=== PATIENT | female | born 1945 | race Caucasian/White ===

== ENCOUNTER 2019-08-25 12:04 | Inpatient (IN) | payer MEDICARE, OTHER ==
[~2019-08-25] VITALS: Ht 167.6 cm; Wt 58.7 kg
[2019-08-25] MEDS ORDERED: SODIUM CHLORIDE FLUSH 10ML SYR IVF ONE (12:30)
--- NOTE | 2019-08-25 12:33 | NUR ---
73 YEAR OLD FEMALE THAT SUFFERED A MECHANICAL GROUND LEVEL FALL. PT FELL ON RIGHT ELBOW AND PRESENTED TO ER TODAY WITH SWELLING, REDNESS AND BRUISING TO UPPER ARM AREA. PT IS PAIN FREE WHEN NOT MOVING. LAST ORAL INTAKE WAS 8 PM LAST NIGHT
[2019-08-25 12:45] LABS: ALBUMIN 3.3 g/dL (3.4-5.0); ANION GAP 7 mmol/L (5-15); BASOPHILS # (AUTO) 0.05 x10^3/uL (0-0.1); BASOPHILS % (AUTO) 1 % (0-1); CALCIUM 8.2 mg/dL (8.5-10.1); CHLORIDE 114 mmol/L (98-107); CREATININE 0.99 mg/dL (0.55-1.02); EOSINOPHILS # (AUTO) 0.01 x10^3/uL (0-0.4); EOSINOPHILS % (AUTO) 0 % (1-7); LYMPHOCYTES # (AUTO) 1.06 x10^3/uL (1-3.4); LYMPHOCYTES % (AUTO) 18 % (22-44); MD NO; MEAN CORPUSCULAR HEMOGLOBIN 31.2 pg (27.0-34.8); MEAN CORPUSCULAR HGB CONC 33.7 g/dL (32.4-35.8); MEAN CORPUSCULAR VOLUME 92.6 fL (80-100); MEAN PLATELET VOLUME 7.7 fL (7.4-10.4); MONOCYTES # (AUTO) 0.62 x10^3/uL (0.2-0.8); MONOCYTES % (AUTO) 11 % (2-9); NEUTROPHILS # (AUTO) 4.02 x10^3/uL (1.8-6.8); NEUTROPHILS % (AUTO) 70 % (42-75); PLATELET COUNT 239 x10^3/uL (130-400); RED BLOOD COUNT 3.84 x10^6/uL (3.82-5.3); RED CELL DISTRIBUTION WIDTH 16.1 % (9.6-15.2)
[2019-08-25] MEDS ORDERED: ONDANSETRON 2MG/ML, 2ML ONE (14:56)
[2019-08-25] MEDS ORDERED: HYDROmorphone 1 MG/ML, 1ML INJ ONE (14:56)
[2019-08-25] MEDS ORDERED: ONDANSETRON 2MG/ML, 2ML IVPush ONE (15:00)
[2019-08-25] MEDS ORDERED: HYDROmorphone 2 MG/ML, 1ML IVPush PRN (15:00)
[2019-08-25 17:57] VITALS: BP 180/108
[2019-08-25] MEDS: SODIUM CHLORIDE 0.9% 1,000 ML IV SCH (18:13)
[2019-08-25] MEDS ORDERED: ACETAMINOPHEN 325 MG TABLET PO PRN (18:30)
[2019-08-25] MEDS ORDERED: ONDANSETRON 2MG/ML, 2ML IVPush PRN (18:30)
[2019-08-25] MEDS ORDERED: POLYETHYLENE GLYCOL 17 GM PACKET PO PRN (18:30)
[2019-08-25] MEDS ORDERED: MORPHINE SULFATE 4 MG/ML, 1ML IVPush PRN (18:30)
[2019-08-25] MEDS ORDERED: ENALAPRILAT 1.25 MG/ML, 2ML IVPush PRN (18:30)
[2019-08-25] MEDS ORDERED: PROMETHAZINE 25 MG/ML, 1ML IM PRN (18:30)
[2019-08-25] MEDS ORDERED: BISACODYL 10 MG SUPP PR PRN (18:30)
[2019-08-25] MEDS ORDERED: DOCUSATE 100 MG CAPSULE PO PRN (18:30)
[2019-08-25] MEDS ORDERED: LABETALOL 5MG/ML, 20ML IVPush PRN (18:30)
[2019-08-25] MEDS ORDERED: LEVO88TA2 PO (18:48)
[2019-08-25] MEDS ORDERED: MULT1TAB57 PO (18:48)
[2019-08-25] MEDS ORDERED: SODIUM CHLORIDE 0.9% 1,000 ML IV SCH (19:00)
[2019-08-25] MEDS: LISINOPRIL 10 MG TABLET PO SCH (22:14)
[2019-08-25] MEDS: HYDROcodone/APAP 5/325 TABLET PO PRN (22:15)
[2019-08-25] MEDS: ENOXAPARIN 40 MG/0.4 ML SQ SCH (22:18)
[2019-08-26 01:00] VITALS: BP 98/57
[2019-08-26] MEDS: LEVOTHYROXINE 88 MCG TABLET PO SCH (05:43)
[2019-08-26 06:00] LABS: BASOPHILS # (AUTO) 0.05 x10^3/uL (0-0.1); BASOPHILS % (AUTO) 1 % (0-1); EOSINOPHILS # (AUTO) 0.04 x10^3/uL (0-0.4); EOSINOPHILS % (AUTO) 1 % (1-7); LYMPHOCYTES # (AUTO) 1.74 x10^3/uL (1-3.4); LYMPHOCYTES % (AUTO) 36 % (22-44); MD NO; MEAN CORPUSCULAR HEMOGLOBIN 31.8 pg (27.0-34.8); MEAN CORPUSCULAR HGB CONC 33.9 g/dL (32.4-35.8); MEAN CORPUSCULAR VOLUME 93.6 fL (80-100); MONOCYTES # (AUTO) 0.61 x10^3/uL (0.2-0.8); MONOCYTES % (AUTO) 13 % (2-9); NEUTROPHILS # (AUTO) 2.37 x10^3/uL (1.8-6.8); NEUTROPHILS % (AUTO) 49 % (42-75); PLATELET COUNT 205 x10^3/uL (130-400); RED BLOOD COUNT 3.26 x10^6/uL (3.82-5.3); RED CELL DISTRIBUTION WIDTH 15.9 % (9.6-15.2)
[2019-08-26 06:01] LABS: ALANINE AMINOTRANSFERASE 10 U/L (12-78); ALBUMIN 2.6 g/dL (3.4-5.0); ANION GAP 7 mmol/L (5-15); CALCIUM 7.8 mg/dL (8.5-10.1); CHLORIDE 115 mmol/L (98-107); CREATININE 1.05 mg/dL (0.55-1.02)
[2019-08-26 06:11] LABS: ALKALINE PHOSPHATASE 86 U/L (45-117); BILIRUBIN,TOTAL 0.9 mg/dL (0.2-1.0)
[2019-08-26 06:46] VITALS: BP 108/65
[2019-08-26] MEDS: THIAMINE 100MG TABLET PO SCH (08:00)
[2019-08-26] MEDS: SENNA/DOCUSATE TABLET PO SCH (08:00)
[2019-08-26] MEDS: LISINOPRIL 10 MG TABLET PO SCH ×2 (08:00→20:31)
[2019-08-26] MEDS: MULTIVITAMIN 1 TABLET PO SCH (08:00)
[2019-08-26] MEDS: FOLIC ACID 1 MG TABLET PO SCH (08:00)
[2019-08-26] MEDS: HYDROcodone/APAP 5/325 TABLET PO PRN ×3 (08:00→20:30)
[2019-08-26] MEDS ORDERED: FOLIC ACID 1 MG TABLET PO SCH (09:00)
[2019-08-26] MEDS: SODIUM CHLORIDE 0.9% 1,000 ML IV SCH (10:01)
[2019-08-26] MEDS ORDERED: MAGNESIUM SULFATE PMX 2GM/50ML 50 ML IV ONE (11:00)
[2019-08-26] MEDS ORDERED: POTASSIUM CHLORIDE 20 MEQ PACKET PO ONE (11:00)
[2019-08-26] MEDS ORDERED: THIA100T67 PO (11:05)
[2019-08-26] MEDS ORDERED: MAGN400T26 PO (11:05)
[2019-08-26] MEDS ORDERED: FOLI-17 PO (11:05)
[2019-08-26] MEDS ORDERED: HYDR-3237 PO (11:05)
[2019-08-26] MEDS ORDERED: LISI-167 PO (11:05)
[2019-08-26 13:32] VITALS: BP 99/50
[2019-08-26 19:57] VITALS: BP 143/81
[2019-08-26] MEDS: ENOXAPARIN 40 MG/0.4 ML SQ SCH (22:29)
[2019-08-27 01:55] VITALS: BP 114/69
[2019-08-27] MEDS ORDERED: LORazepam 0.5MG TABLET PO PRN (03:00)
[2019-08-27] MEDS ORDERED: LORazepam 1MG TABLET PO PRN ×4 (03:00)
[2019-08-27] MEDS ORDERED: LORazepam 2 MG/ML, 1ML IV PRN ×5 (03:00)
[2019-08-27] MEDS: LEVOTHYROXINE 88 MCG TABLET PO SCH (06:13)
[2019-08-27 07:59] VITALS: BP 102/62
[2019-08-27] MEDS: SENNA/DOCUSATE TABLET PO SCH (08:17)
[2019-08-27] MEDS: LISINOPRIL 10 MG TABLET PO SCH (08:17)
[2019-08-27] MEDS: THIAMINE 100MG TABLET PO SCH (08:17)
[2019-08-27] MEDS: FOLIC ACID 1 MG TABLET PO SCH (08:17)
[2019-08-27] MEDS: MULTIVITAMIN 1 TABLET PO SCH (08:17)
[2019-08-27] MEDS: HYDROcodone/APAP 5/325 TABLET PO PRN ×3 (08:17→15:52)
[2019-08-27 15:01] VITALS: BP 117/75
== END 2019-08-27 17:02 | DRG 543 ==
LOC: ED 14:39 → EDIP 14:40 → ED 14:57 → 4NE 17:48 → ED 17:48 → 4NE 17:48 → SUATTDRO 17:52 → ED 19:02
PROVIDERS: ADMIT Internal Medicine; ATTEND Internal Medicine
DX: M80.021A Age-related osteoporosis with current pathological fracture, right humerus, initial encounter for fracture (principal); D62 Acute posthemorrhagic anemia; E87.6 Hypokalemia; E89.0 Postprocedural hypothyroidism; W01.0XXA Fall on same level from slipping, tripping and stumbling without subsequent striking against object, initial encounter; E83.42 Hypomagnesemia; D63.8 Anemia in other chronic diseases classified elsewhere; Y93.01 Activity, walking, marching and hiking; E88.09 Other disorders of plasma-protein metabolism, not elsewhere classified; I10 Essential (primary) hypertension; Z90.89 Acquired absence of other organs; Y92.89 Other specified places as the place of occurrence of the external cause; Y99.8 Other external cause status; Z79.899 Other long term (current) drug therapy
CPT/HCPCS: 36415; 80048; 80053; 82040; 83735; 84443; 85025; 96374; G0378; J1170; J1650; J2405; J3475; J7030

== ENCOUNTER → 2020-04-05 | Outpatient (CLI) | payer MEDICARE ==
[~2020-04-05] MED LIST: FOLI-17 PO; HYDR-3237 PO; LEVO88TA2 PO; LISI-167 PO; MAGN400T26 PO; MULT1TAB57 PO; THIA100T67 PO
== END | disposition home or self-care (01) ==
LOC: CFH 10:49
PROVIDERS: ATTEND Family Medicine
DX: N95.8 Other specified menopausal and perimenopausal disorders (principal); M85.80 Other specified disorders of bone density and structure, unspecified site
CPT/HCPCS: 77080